=== PATIENT | female | born 1985 | race African-American/Black ===

== ENCOUNTER 2019-02-24 09:54 | Emergency (ER) | payer OTHER ==
[~2019-02-24] VITALS: Ht 160 cm; Wt 56.7 kg
[2019-02-24] MEDS ORDERED: AMOXICILLIN 50500 MG PO (10:17)
[2019-02-24] MEDS ORDERED: NAPROSYN500 MG PO (10:17)
[2019-02-24 10:34] VITALS: BP 143/81
== END 2019-02-24 10:35 | disposition home or self-care (01) ==
LOC: M.ERS 09:54
DX: J02.9 Acute pharyngitis, unspecified (principal)

== ENCOUNTER 2019-09-17 10:06 | Emergency (ER) | payer OTHER ==
[~2019-09-17] VITALS: Ht 160 cm; Wt 54.4 kg
[~2019-09-17 10:06] MED LIST: AMOXICILLIN 50500 MG PO; NAPROSYN500 MG PO
[2019-09-17 10:49] LABS: ABSOLUTE EOSINOPHILS 0.3 thou/uL (0.0-0.7); ABSOLUTE LYMPHOCYTES 2.7 thou/uL (0.8-5.3); ABSOLUTE MONOCYTES 0.5 thou/uL (0.0-1.2); ABSOLUTE NEUTROPHILS 3.9 thou/uL (1.6-8.1); BASOPHILS 0.6 %; EOSINOPHILS 4.3 %; HEMATOCRIT 37.8 % (37.0-47.0); LYMPHOCYTES 35.7 %; MCH 32.7 pg (26.0-34.0); MCHC 34.3 g/dL (28.0-37.0); MCV 95.4 fL (80.0-100.0); MONOCYTES 7.1 %; MPV 7.9 fl. (7.2-11.1); NUCLEATED RBCS 0 /100WBC; PLATELET COUNT* 257 thou/uL (150-400); POLYS 52.3 %; RBC 3.96 mil/uL (4.20-5.00); RDW-CV 13.3 % (10.5-14.5); WBC 7.5 thou/uL (4.0-11.0)
[2019-09-17 11:02] LABS: CALCIUM 8.9 mg/dL (8.5-10.1); CREATININE 0.7 mg/dL (0.6-1.3); POTASSIUM 3.7 mmol/L (3.5-5.1)
[2019-09-17 11:07] LABS: ALBUMIN 4.1 g/dL (3.4-5.0); MAGNESIUM 1.8 mg/dL (1.8-2.4); TOTAL BILIRUBIN 0.3 mg/dL (<0.1-1.0); TOTAL PROTEIN 7.9 g/dL (6.4-8.2)
[2019-09-17] MEDS ORDERED: NORCO 5-325 TA1 EAC1 PO (12:38)
--- NOTE | 2019-09-17 12:51 | EKG ---
[place] [address] ELECTROCARDIOGRAM REPORT Name: NAS BANGURA Room: [facility]#: [id number] Admission: 09/17/19 Attend Phys: Discharge: Date of : 87 Date of Service: 09/17/19 1010 Report #: [id number] THIS REPORT FOR: //name// [facility] ED Test Date: 2019-09-17 Test Time: 10:10:14 Pat Name: NAS BANGURA Department: Room: Gender: F [employer] Operator: [facility] : 1985 Requested By: Vasquez James Order Number: [id number] MD: Jameson Tiwari Measurements Intervals [place] Rate: 77 P: 55 TN: 135 QRS: 74 QRSD: 91 T: 15 QT: 354 QTc: 401 Interpretive Statements Sinus rhythm nonspecific st changes No previous ECG available for comparison Electronically Signed On 09-17-2019 12:50:12 [employer] by Jameson Tiwari [email or web address] <ELECTRONICALLY SIGNED> By: Jameson Tiwari MD, [facility] 09/17/19 1250 1010 1010 Jameson Tiwari MD, FACC /EPI
[2019-09-17 13:00] VITALS: BP 107/63
== END 2019-09-17 13:05 | disposition home or self-care (01) ==
LOC: M.ERS 10:06
PROVIDERS: Emergency Medicine Emergency Medical Services
DX: R07.89 Other chest pain (principal); M25.512 Pain in left shoulder; F17.210 Nicotine dependence, cigarettes, uncomplicated